=== PATIENT | male | born 1985 | race Caucasian/White ===

== ENCOUNTER 2017-07-15 16:10 | Emergency (ER) | payer MEDICAID ==
[~2017-07-15] VITALS: Ht 157.5 cm; Wt 59.0 kg
[~2017-07-15 16:10] MED LIST: INSULIN
[2017-07-15 17:15] VITALS: BP 142/71
[2017-07-15] MEDS ORDERED: CLOP75TA33 PO (17:20)
[2017-07-15] MEDS ORDERED: SEVE800T8 PO (17:20)
[2017-07-15] MEDS ORDERED: HYDR-4135 PO (17:20)
[2017-07-15] MEDS ORDERED: CLON0.1T PO (17:20)
== END 2017-07-15 19:50 | disposition left against medical advice (07) ==
LOC: ER 16:30
DX: R51 Headache (principal); Z53.21 Procedure and treatment not carried out due to patient leaving prior to being seen by health care provider

== ENCOUNTER 2020-06-22 07:19 | Emergency (ER) | payer MEDICAID ==
[~2020-06-22] VITALS: Ht 157.5 cm; Wt 82.0 kg
[~2020-06-22 07:19] MED LIST changes: +CLON0.1T PO; +CLOP75TA33 PO; +HYDR-4135 PO; +SEVE800T8 PO
[2020-06-22] MEDS ORDERED: ACETAMINOPHEN 325MG TABLET PO ONE (08:45)
[2020-06-22 09:33] VITALS: BP 144/81
== END 2020-06-22 09:34 | disposition home or self-care (01) ==
LOC: ER 07:19
DX: S90.31XA Contusion of right foot, initial encounter (principal); W22.8XXA Striking against or struck by other objects, initial encounter; Y93.89 Activity, other specified; Y92.89 Other specified places as the place of occurrence of the external cause; Y99.8 Other external cause status; E11.9 Type 2 diabetes mellitus without complications; Z86.73 Personal history of transient ischemic attack (TIA), and cerebral infarction without residual deficits; Z99.2 Dependence on renal dialysis; Z79.899 Other long term (current) drug therapy; N18.6 End stage renal disease
CPT/HCPCS: 73630; 99283; Z7610

== ENCOUNTER 2020-07-22 10:45 | Emergency (ER) | payer MEDICAID ==
[~2020-07-22] VITALS: Ht 165.1 cm; Wt 77.0 kg
[2020-07-22] MEDS: DOXYCYCLINE HYCLATE 100MG CAPSULE PO NR (12:41)
[2020-07-22 13:44] VITALS: BP 131/74
== END 2020-07-22 13:45 | disposition home or self-care (01) ==
LOC: ER 10:45
DX: S92.001A Unspecified fracture of right calcaneus, initial encounter for closed fracture (principal); I12.0 Hypertensive chronic kidney disease with stage 5 chronic kidney disease or end stage renal disease; E11.22 Type 2 diabetes mellitus with diabetic chronic kidney disease; N18.6 End stage renal disease; Z86.73 Personal history of transient ischemic attack (TIA), and cerebral infarction without residual deficits; X58.XXXA Exposure to other specified factors, initial encounter; Y93.89 Activity, other specified; Y92.89 Other specified places as the place of occurrence of the external cause; Y99.8 Other external cause status
CPT/HCPCS: 29515; 73610; 73630; 99284